=== PATIENT | male | born 1995 | race Caucasian/White ===

== ENCOUNTER 2022-07-18 13:20 | Emergency (ER) | payer SELFPAY ==
[2022-07-18] MEDS ORDERED: Sodium Chloride 0.9% 10 ML Syringe FLUSH PRN (13:29)
[2022-07-18] MEDS ORDERED: EPINEPHrine 1 MG/ML SDV IM ONE (13:33)
[2022-07-18] MEDS ORDERED: Famotidine 20 MG/2 ML SDV IVPUSH ONE (13:33)
[2022-07-18] MEDS ORDERED: Sodium Chloride 0.9% 1,000 ML IV ONE (13:34)
[2022-07-18] MEDS ORDERED: diphenhydrAMINE 50 MG/ML SDV IVPUSH ONE (13:34)
[2022-07-18] MEDS ORDERED: methylPREDNISolone Sodium Succinate 125 MG/2 ML SDV IVPUSH ONE (13:35)
== END 2022-07-18 17:00 | disposition home or self-care (01) ==
LOC: JP.ED 13:20
DX: T78.03XA Anaphylactic reaction due to other fish, initial encounter (principal); Z91.018 Allergy to other foods; Z79.899 Other long term (current) drug therapy
CPT/HCPCS: 96361; 96372; 96374; 96375; 99283; J0171; J1200; J2930; J3490; J7030

== ENCOUNTER 2024-03-07 05:20 | Emergency (ER) | payer OTHER ==
[2024-03-07] MEDS: Aluminum Hydroxide/Magnesium Hydroxide/Simethicone Susp 30 ML Cup PO ONE (05:56)
[2024-03-07 06:04] LABS: BASOPHILS ABSOLUTE AUTO 0.07 K/uL (0.00-0.10); BASOPHILS PERCENT AUTO 0.5 % (0.1-1.3); EOSINOPHILS ABSOLUTE AUTO 0.34 K/uL (0.00-0.40); EOSINOPHILS PERCENT AUTO 2.5 % (0.0-5.4); HEMATOCRIT 40.4 % (38.4-49.7); IMMATURE GRAN ABSOLUTE AUTO 0.06 K/uL (0.00-0.23); IMMATURE GRAN PERCENT AUTO 0.4 % (0.0-0.7); LYMPHOCYTES PERCENT AUTO 22.5 % (11.4-47.7); MEAN CORPUSCULAR HEMOGLOBIN 32.1 pg (31.6-35.5); MEAN CORPUSCULAR HGB CONC 37.1 g/dL (31.6-35.5); MEAN CORPUSCULAR VOLUME 86.3 fL (81.4-99.0); MONOCYTES ABSOLUTE AUTO 0.71 K/uL (0.20-0.90); MONOCYTES PERCENT AUTO 5.3 % (3.3-12.6); NEUTROPHILS ABSOLUTE AUTO 9.18 K/uL (1.0-7.6); NEUTROPHILS PERCENT AUTO 68.8 % (40.0-78.1); PLATELET COUNT,PLT 215 K/uL (130-375); RED BLOOD CELL COUNT 4.68 M/uL (4.14-5.76); WHITE BLOOD CELL COUNT,WBC 13.4 K/uL (3.2-11.0)
[2024-03-07 06:28] LABS: ALBUMIN 3.3 g/dL (3.4-5.0); ALKALINE PHOSPHATASE 92 U/L (46-116); BILIRUBIN TOTAL 0.5 mg/dL (0.2-1.0); BLOOD UREA NITROGEN,BUN 9 mg/dL (7-18); CALCIUM 8.2 mg/dL (8.5-10.1); CARBON DIOXIDE,CO2 17 mmol/L (21-32); CHLORIDE,CL 104 mmol/L (100-108); CREATININE 0.8 mg/dL (0.8-1.3); EST CRCL DRUG DOSING (CG) 126.23 mL/min; ESTIMATED GFR 122 mL/min (>60); GLUCOSE RANDOM 146 mg/dL (74-106); POTASSIUM,K 4.2 mmol/L (3.6-5.2); SODIUM,NA 138 mmol/L (140-148); TROPONIN I HIGH SENSITIVITY 4.2 pg/mL (<=60.3)
[2024-03-07 06:55] LABS: A/G RATIO 1.1 (1.2-2.2); ANION GAP 21.2 mmol/L (5.0-14.0); PROTEIN TOTAL,TP 6.2 g/dL (6.4-8.2)
[2024-03-07 06:56] LABS: ALANINE AMINOTRANSFERASE,ALT 55 U/L (12-78); ASPARTATE AMNIOTRANSFERASE,AST 28 U/L (15-37)
== END 2024-03-07 07:17 | disposition home or self-care (01) ==
LOC: JP.ED 05:20
DX: R07.89 Other chest pain (principal); Z91.013 Allergy to seafood; Z79.51 Long term (current) use of inhaled steroids; Z79.899 Other long term (current) drug therapy
CPT/HCPCS: 36415; 71046; 80053; 84484; 85025; 99285; A9270; 99283